=== PATIENT | female | born 1995 | race Caucasian/White ===

== ENCOUNTER 2019-08-17 22:40 | Emergency (ER) | payer SELFPAY ==
[~2019-08-17] VITALS: Ht 149.9 cm; Wt 104.5 kg
[2019-08-17 22:46] VITALS: Ht 149.9 cm; Wt 104.5 kg
[2019-08-17] MEDS ORDERED: CLINDAMYCIN HC300 MG PO (22:51)
[2019-08-17 23:02] VITALS: BP 123/79
== END 2019-08-17 23:05 | disposition home or self-care (01) ==
LOC: D.ER 22:40
DX: L03.119 Cellulitis of unspecified part of limb (principal)